=== PATIENT | male | born 1965 | race Caucasian/White ===

== ENCOUNTER 2025-05-10 16:27 | Outpatient (OUT) | payer OTHER, SELFPAY | END 2025-05-10 16:28 | disposition home or self-care (01) | LOC: US 16:32 | PROVIDERS: PCP Family Medicine; Visit Provider Family Medicine | DX: M79.604 Pain in right leg (principal); R22.41 Localized swelling, mass and lump, right lower limb | CPT/HCPCS: 93971 ==